=== PATIENT | male | born 1980 | race Caucasian/White ===

== ENCOUNTER 2016-08-08 12:41 | Emergency (ER) | payer SELFPAY ==
[~2016-08-08] VITALS: Ht 177.8 cm; Wt 113.4 kg
[2016-08-08 13:35] VITALS: BP 138/77
[2016-08-08] MEDS ORDERED: FLUC150T PO (14:19)
[2016-08-08] MEDS ORDERED: PRED20TA PO (14:19)
--- NOTE | 2016-08-08 14:19 | PHYS DOC ---
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 Adult General Chief Complaint Chief Complaint: SKIN RASH/ABSCESS HPI HPI Patient is a 36 year old male who presents with multiple skin complaints. He has a lump on the right forearm that has been present for 2 months. The lump started after a failed attempt at venous access for IV drug use. He has completed a course of antibiotics for this already. He states that it is always red. It is not painful unless he hits his arm against something. He also reports a rash on the left forearm for the last week. This rash is itchy. He denies any change in household products or new medications. He does not have any fevers, shortness of breath, or angioedema. He lastly complains of a rash on the left flank that has been present for a few months. It has gradually gotten larger. It has spread along the edges with central clearing. It is mildly pruritic. He does not have a PCP. Review of Systems Review of Systems Constitutional: Denies fever or chills. [] Eyes: Denies change in visual acuity, redness, or eye pain. [] HENT: Denies ear pain, nasal congestion or sore throat. Denies angioedema. Respiratory: Denies cough or shortness of breath. [] Musculoskeletal: Denies back pain or joint pain. [] Integument: Reports lump on forearm and rash. Neurologic: Denies headache, focal weakness or sensory changes. [] Allergies Allergies Allergies Coded Allergies Type Severity Reaction Last Updated Verified No Known Drug Allergies 08/08/16 No Physical Exam Physical Exam Constitutional: Well developed, well nourished, no acute distress, non-toxic appearance. [] HENT: Normocephalic, atraumatic, oropharynx moist. [] Eyes: PERRLA, EOMI, conjunctiva normal, no discharge. [] Neck: Normal range of motion, no tenderness, supple, no stridor. [] Skin: Warm, dry. There is a 2cm nontender lipoma on the right ventral forearm with minimal erythema that has been stable for 2 months. There is a fine papular erythematous rash scattered on the left ventral forearm. There is a large, circular rash with rough erythematous borders and central clearing on the left flank. Back: No midline tenderness, no CVA tenderness. [] Extremities: No tenderness, ROM intact, no edema. Distal pulses equal bilaterally. [] Neurologic: Alert and oriented X 3, normal motor function, normal sensory function, no focal deficits noted. [] Psychologic: Affect normal, judgement normal, mood normal. [] Current Patient Data Vital Signs Vital Signs Date Time Temp Pulse Resp B/P Pulse Ox O2 Delivery O2 Flow Rate FiO2 08/08/16 13:35 98.1 69 18 138/77 97 Room Air 98.1 EKG EKG [] Radiology/Procedures Radiology/Procedures [] Course & Med Decision Making Course & Med Decision Making Pertinent Labs and Imaging studies reviewed. (See chart for details) [] Dragon Disclaimer Dragon Disclaimer This electronic medical record was generated, in whole or in part, using a voice recognition dictation system. Departure Departure Impression: Primary Impression: Rash Additional Impressions: Tinea corporis Lipoma Disposition: HOME, SELF-CARE Condition: STABLE Referrals: MICKEY HENSON MD Patient Instructions: Body Ringworm, Lipoma-Brief, Rash, [id number] Additional Instructions: You were seen for multiple skin complaints. The lump on your forearm appears to be a lipoma, which is benign. Please take the prescribed medications as directed. Please follow up with the load out supervisor listed below if your skin problems continue. Return to the emergency department if you have any new or concerning symptoms. Scripts Fluconazole (Diflucan)150 Mg Tablet1 Tab PO WEEKLY #3 TAB Prov:CHARLI SOLITARIO 08/08/16 Prednisone 20 Mg [id number] Mg PO DAILY 5 Days Prov:CHARLI SOLITARIO 08/08/16 Problem Qualifiers Additional Impressions: Lipoma Lipoma location: upper extremity Laterality: right Qualified Code: D17.21 - Benign lipomatous neoplasm of skin and subcutaneous tissue of right arm CHARLI SOLITARIO Aug 08, 2016 14:19
== END 2016-08-08 14:22 | disposition home or self-care (01) ==
LOC: ER 12:41
DX: B35.4 Tinea corporis (principal); D17.21 Benign lipomatous neoplasm of skin and subcutaneous tissue of right arm; F17.210 Nicotine dependence, cigarettes, uncomplicated; F15.10 Other stimulant abuse, uncomplicated
CPT/HCPCS: 99283